=== PATIENT | female | born 1970 | race Caucasian/White ===

== ENCOUNTER 2018-01-03 11:42 | Emergency (ER) | payer MEDICAID, OTHER ==
[~2018-01-03] VITALS: Ht 149.9 cm; Wt 80.1 kg
[~2018-01-03 11:42] MED LIST: ACET1TAB10 PO; CARI350T14 PO; CYCL-259 PO; DIAZ2TAB PO; DIPH25TA65 PO; HYDR1LIQ6 PO; HYDR25TA6 PO; IBUP200T49 PO; LOPE2CAP3 PO; NAPR220T77 PO; NORE1TAB30 PO; PROM25TA10 PO; SERT25TA PO; TRAM50TA2 PO
[2018-01-03] MEDS ORDERED: ALBUTEROL/IPRATROPIUM 2.5MG/0.5MG, 3 ML ONE (13:46)
[2018-01-03] MEDS: ALBUTEROL/IPRATROPIUM 2.5MG/0.5MG, 3 ML NPPB SCH ×2 (13:46→13:59)
[2018-01-03] MEDS ORDERED: BENZ-17 PO (14:13)
[2018-01-03] MEDS ORDERED: OSEL75CA PO (14:13)
[2018-01-03 15:25] VITALS: BP 140/80
== END 2018-01-03 15:27 | disposition home or self-care (01) ==
LOC: ED 15:21
DX: J20.8 Acute bronchitis due to other specified organisms (principal); B96.89 Other specified bacterial agents as the cause of diseases classified elsewhere; I10 Essential (primary) hypertension
CPT/HCPCS: 71046; 93005; 94640; 99284; J7620